=== PATIENT | female | born 1960 | race Caucasian/White ===

== ENCOUNTER 2020-01-27 23:57 | Emergency (ER) | payer OTHER, SELFPAY ==
[2020-01-28 00:03] VITALS: BP 143/73; PULSE 91; RESP 18; TEMP 36.6; O2SAT 98
--- NOTE | 2020-01-28 00:14 | ED.SKABFB ---
HPI - Skin/Abscess/Foreign Bdy General Chief complaint: Skin/Abscess/Foreign Body Stated complaint: spider bite Time Seen by Provider: 01/28/20 00:07 Source: patient Mode of arrival: ambulatory Limitations: no limitations History of Present Illness HPI narrative: This patient is a 60 year old female who presents for evaluation of a spider bite. She reports she was bitten by a spider yesterday morning at 10 am. She states she was bitten by a brown recluse. She developed a rash around the bite site. She reports she developed a rash to her chest and back tonight so she came to the ER. She denies fever, sob, nausea or vomiting. She does have mild itching. Related Data Allergies Allergy/AdvReac Type Severity Reaction Status Date / Time No Known Allergies Allergy Verified 01/28/20 01:33 Review of Systems Review of Systems: All systems reviewed & are unremarkable except as noted in HPI and below Constitutional: Constitutional: Denies chills and Denies fever(s) Cardiovascular: Cardiovascular: Denies chest pain Respiratory: Respiratory: Denies dyspnea Gastrointestinal: Gastrointestinal: Denies abdominal pain, Denies diarrhea, Denies nausea and Denies vomiting Integumentary/Breasts: Skin/Breast: Reports pruritus and Reports rash PMF Past Medical History Medical History (Updated 01/28/20 @ 00:24 by Enma Roa MD) DVT (deep venous thrombosis) Social History Social History Gender identity (if verbalized by the patient): Female Exam Const: General: no acute distress and alert Orientation/consciousness: patient oriented x3 HENMT: Head: normocephalic and atraumatic Face and sinus: face symmetric Eyes: EOM: EOMs intact bilaterally Resp: Effort & Inspection: normal respiratory effort Skin: Rashes: rashes noted (left inner upper arm with large area urticar with bruised middle. ; ) Other: diffuse chest and back with blanchable erythematous papules. Neuro: General: patient oriented x3 and moves all extremities Course Reevaluation(s) Reevaluation #1: PAtient states she is up to date on her tetanus. I discussed rash will be treated with steroids. No need for antibiotics at this time. Date: 01/28/20 Time: 00:22 Vital Signs Vital signs: Vital Signs Temperature 97.8 F 01/28/20 00:03 Pulse Rate 91 01/28/20 00:03 Respiratory Rate 18 01/28/20 00:03 Blood Pressure 143/73 H 01/28/20 00:03 Pulse Oximetry 98 01/28/20 00:03 Temperature 97.8 F 01/28/20 00:03 Pulse Rate 91 01/28/20 00:03 Respiratory Rate 18 01/28/20 00:03 Blood Pressure 143/73 H 01/28/20 00:03 Pulse Oximetry 98 01/28/20 00:03 Discharge Plan Discharge Clinical Impression: Allergic reaction to spider bite Patient Disposition: Home, Self-Care Condition: Stable Instructions: Antibiotic Form, Insect Bite or Sting (ED), Brown Recluse Spider Bite (ED) Additional Instructions: Take claritin or benadryl for your itching. Watch for signs of infection such as drainage , redness, fever, vomiting or weakness. Prescriptions: New prednisone 50 mg tablet 50 mg PO DAILY Qty: 5 RF: 0 Follow-up/Referrals: PHYSICIAN NOT ON STAFF,NONSTAFF [Non-Staff] - Discharge Date/Time: 01/28/20 01:35
[2020-01-28] MEDS: FAMOTIDINE 20 MG TABLET PO (00:39)
[2020-01-28] MEDS: diphenhydrAMINE HCl CAP 25 MG CAPSULE 50 MG PO (00:39)
[2020-01-28] MEDS: methylPREDNISolone SOD SUCC 125 MG VIAL IM (00:39)
== END 2020-01-28 01:35 | disposition home or self-care (01) ==
PROVIDERS: Emergency Provider General Practice
DX: T63.331A Toxic effect of venom of brown recluse spider, accidental (unintentional), initial encounter (principal); Z86.718 Personal history of other venous thrombosis and embolism
CPT/HCPCS: 96372; 99283; A9270; J2930

== ENCOUNTER 2020-02-04 16:57 | Emergency (ER) | payer OTHER, SELFPAY ==
--- NOTE | ~2020-02-04 | US_ITS ---
US venous doppler [facility] DATE: 02/04/2020 19:16 INDICATION: Left leg swelling TECHNIQUE: Real-time and color flow imaging and Doppler analysis of the left lower extremity COMPARISON: None FINDINGS: The left greater saphenous vein is patent. There is spontaneous and phasic flow and normal augmentation and color flow signal and normal compression of the veins of the left leg. IMPRESSION: No evidence of deep venous thrombosis of left leg Reviewed, dictated and finalized at [facility]. Reviewed, dictated and finalized at location [facility].
--- NOTE | ~2020-02-04 | US_ITS ---
US venous doppler [facility] DATE: 02/04/2020 19:22 INDICATION: Spider bite of the medial upper left arm. Pain. TECHNIQUE: Real-time and color flow imaging and Doppler analysis of the veins of the left upper extre mity COMPARISON: None FINDINGS: There is normal flow in the left internal jugular, subclavian, axillary, brachial, basilic, cephalic, radial and ulnar veins. IMPRESSION: No evidence of deep venous thrombosis of left upper extremity Reviewed, dictated and finalized at [facility]. Reviewed, dictated and finalized at location [facility].
--- NOTE | ~2020-02-04 | XR_ITS ---
XR chest 2V DATE: 02/04/2020 17:31 INDICATION: Cough, shortness of breath, left lower extremity edema. Spider bite of left arm. TECHNIQUE: PA and lateral views COMPARISON: None FINDINGS: Normal heart size. No hilar or mediastinal enlargement. No pulmonary infiltrate or consolid ation, pleural effusion or pulmonary vascular congestion or pneumothorax. Diffuse osteopenia. IMPRESSION: No active cardiopulmonary disease Reviewed, dictated and finalized at location [facility].
--- NOTE | ~2020-02-04 | CT_ITS ---
EXAMINATION: CTA chest PE protocol DATE: 02/04/2020 18:29 INDICATION: Cough, shortness of breath, left lower extremity edema. TECHNIQUE: Computed tomography angiography (CTA) of the chest was performed with 100 mL Omnipaque-350 intravenous contrast timed to evaluate the pulmonary arteries. Coronal maximum intensity projection 3D-reconstructions were created by the technologist. Automated exposure control and iterative reconst ruction technique were employed. Exam dose: 567.64 mGy-cm total exam DLP. COMPARISON: 02/04/2020 PA and lateral chest FINDINGS: There is diagnostic contrast enhancement of the pulmonary arteries. There is no evidence of pulmonary embolism. No aortic dissection or aneurysm. Normal heart size. No pericardial or pleural effusion. Calcified pulmonary granulomas in the superior segment of the right lower lobe, calcified right hilar and mediastinal nodes. There is mild discoid atelectasis in the lower lobes. No pulmonary infiltrate or consolidation or pul monary mass lesion is detected. Included skeletal structures are unremarkable. IMPRESSION: No evidence of pulmonary embolism Reviewed, dictated and finalized at [facility]. Reviewed, dictated and finalized at [facility].
--- NOTE | 2020-02-04 17:08 | ED.SOB ---
HPI - SOB/Dyspnea General Chief Complaint: Shortness of Breath/Dyspnea <Lori Larios MD - Last Filed: 02/04/20 19:41> Stated Complaint: SOB, EDEMA IN LEFT LEG <Lori Larios MD - Last Filed: 02/04/20 19:41> Time Seen by Provider: 02/04/20 17:08 <Lori Larios MD - Last Filed: 02/04/20 19:41> Source: patient <Lori Larios MD - Last Filed: 02/04/20 19:41> Mode of arrival: ambulatory <Lori Larios MD - Last Filed: 02/04/20 19:41> Limitations: no limitations <Lori Larios MD - Last Filed: 02/04/20 19:41> History of Present Illness HPI Narrative: Patient is a 60-year-old female with a history of factor V Leiden, chronic anticoagulation on Xarelto, who presents for evaluation of chest pain, shortness of breath, left lower extremity swelling as well as left arm infection. Patient reports that she was bitten by a brown recluse spider approximately a week ago, seen in this ER diagnosed with an allergic reaction, then seen by her primary care provider and put on doxycycline. Patient reports severe arm pain in the right arm that is dull and aching in nature with increased bruising around the area of the envenomation site. Patient denies any purulent discharge. No severe edema in the left upper arm. Patient also reports pitting edema of the left foot and left leg. 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 Patient is also reporting some chest pain and shortness of breath over the course of the day. No shortness of breath at rest. She initially describes the chest pain is burning in nature and is worried about acid reflux, but has been states she has more reporting chest pain over the center of her chest. This has been present since this morning. No ripping or tearing sensation to the pain. No flank pain. Patient has been compliant with her anticoagulation. She denies any fever, productive cough or recent sick contacts. Pt with recent four hour car drive. No sick contacts or known covid contacts. <Lori Larios MD - Last Filed: 02/04/20 19:41> Related Data Home Medications: Home Medications Medication Instructions Recorded Confirmed rivaroxaban [Xarelto] mg 02/04/20 02/04/20 <Lori Larios MD - Last Filed: 02/04/20 19:41> Allergies/Adverse Reactions: Allergies Allergy/AdvReac Type Severity Reaction Status Date / Time No Known Allergies Allergy Verified 02/04/20 16:58 <Lori Larios MD - Last Filed: 02/04/20 19:41> Review of Systems Review of Systems: Narrative: CONSTITUTIONAL: Denies fever, chills, or sweats. ENT: Denies rhinorrhea, congestion, sore throat, or otalgia. CARDIOVASCULAR: Reports chest pain and left lower extremity edema RESPIRATORY: Denies cough, reports shortness of breath GASTROINTESTINAL: Denies abdominal pain, nausea, vomiting, or diarrhea. GENITOURINARY: Denies dysuria or hematuria. SKIN: Denies rash or itching. MUSCULOSKELETAL: Denies back pain, joint pain, or myalgia. NEUROLOGIC: Denies headache, numbness, or weakness. <Lori Larios MD - Last Filed: 02/04/20 19:41> [facility] Past Medical History Medical History: Medical History DVT (deep venous thrombosis) Factor V Leiden <Lori Larios MD - Last Filed: 02/04/20 19:41> Social History Social History: Social History (Updated 02/04/20 @ 17:34 by Lori Larios MD) Smoking status: Never smoker Alcohol intake: never Substance use: never Living arrangements: with family Gender identity (if verbalized by the patient): Female <Lori Larios MD - Last Filed: 02/04/20 19:41> Exam Narrative: Exam Narrative: GENERAL: Awake, alert, conversant HEAD: Normocephalic, atraumatic. EYES: PERRLA and EOMI. ENT: Nares clear, no rhinorrhea or epistaxis. Mucous membranes moist. NECK: Meza
[2020-02-04 17:11] VITALS: BP 136/94; PULSE 83; RESP 17; TEMP 36.7; O2SAT 98
--- NOTE | 2020-02-04 17:16 | ECG_ITS ---
Measurements Intervals [place] Rate: 68 P: 41 NH: 159 QRS: -12 QRSD: 77 T: 10 QT: 382 QTc: 409 Interpretive Statements SINUS RHYTHM VOLTAGE CRITERIA FOR LVH MINIMAL Q WAVES- HIGH LATERAL LEADS BORDERLINE T WAVE ABNORMALITY- INFERIOR LEADS BASELINE ARTIFACT- V6 BORDERLINE ECG Electronically Signed On 02-04-2020 18:09:10 CDT by Sandeep Blackman D.O.
[2020-02-04 17:45] VITALS: O2SAT 96
[2020-02-04 17:51] LABS: Basophils Percent Auto 0.5 % (0.2-1.2); Eosinophils Absolute Auto 0.2 K/mm3 (0-0.3); Eosinophils Percent Auto 2.5 % (0-4.4); Hematocrit 39.5 % (37.0-47.0); Hemoglobin 13.2 g/dL (12.0-15.0); Immature Granulocyte Absolute 0.02 K/mm3 (0.00-0.031); Immature Granulocyte Percent A 0.2 % (0-0.5); Lymphocytes Absolute Auto 2.86 K/mm3 (0.9-3.2); Lymphocytes Percent Auto 34.6 % (18.3-44.2); Mean Corpuscular HGB Conc 33.4 g/dl (32-36); Mean Corpuscular Hemoglobin 32.1 pg (26-34); Mean Corpuscular Volume 96.1 fl (80-100); Monocytes Percent Auto 11.5 % (2.6-8.5); Neutrophils Absolute Auto 4.2 K/mm3 (1.3-6.7); Neutrophils Percent Auto 50.7 % (45.5-73.1); Platelet Count Result 242 k/mm3 (150-375); Red Blood Count 4.11 M/mm3 (4.2-5.4); Red Cell Distribution Width 12.7 % (11.5-14.5); White Blood Count 8.3 K/mm3 (4.5-10.0)
[2020-02-04 17:58] LABS: INR 1.1; Prothrombin Time 14.3 Seconds (11.1-14.7)
[2020-02-04 17:59] LABS: Partial Thromboplastin Time 29.6 SECONDS (22.3-36.8)
[2020-02-04 18:04] LABS: Anion Gap 3 mmol/L (8-16); Blood Urea Nitrogen 22 mg/dL (7-17); CRP 2.7 mg/dL (<1.0); Calcium 9.3 mg/dL (8.4-10.2); Carbon Dioxide 30 mmol/L (22-30); Chloride 101 mmol/L (98-107); Estimated CRCL calculation 54 ml/min; Estimated Glomerular Filt Rate 57; Glucose 98 mg/dL (65-105); Potassium 4.2 mmol/L (3.4-5.0); Sodium 134 mmol/L (137-145)
[2020-02-04 18:14] LABS: NT Pro B Type Natriuretic Pept 264 PG/ML (5-100); Troponin I < 0.012 ng/mL (0.000-0.034)
[2020-02-04 18:15] LABS: Erythrocyte Sedimentation Rate 18 mm/hr (0-20)
[2020-02-04 20:19] VITALS: BP 137/80; PULSE 77; RESP 18; TEMP 36.6; O2SAT 99
== END 2020-02-04 20:20 | disposition home or self-care (01) ==
PROVIDERS: Emergency Medicine; Emergency Provider Emergency Medicine; PCP Family Medicine
DX: R60.0 Localized edema (principal); R07.89 Other chest pain; T63.331D Toxic effect of venom of brown recluse spider, accidental (unintentional), subsequent encounter; D68.51 Activated protein C resistance; Z79.01 Long term (current) use of anticoagulants; Z86.718 Personal history of other venous thrombosis and embolism; R94.31 Abnormal electrocardiogram [ECG] [EKG]
CPT/HCPCS: 36415; 71046; 71275; 80048; 83880; 84484; 85025; 85610; 85652; 85730; 86140; 93005; 93971; 99284; Q9967

== ENCOUNTER → 2022-05-07 10:12 | Outpatient (CLI) | payer OTHER, SELFPAY ==
--- NOTE | ~2022-05-07 | MM_ITS ---
EXAMINATION: MM screening [facility] BI w varsha HISTORY: Screening mammogram TECHNIQUE: Craniocaudal and mediolateral oblique 3-D tomosynthesis images were obtained and synthetic 2-D images were generated. CAD analysis was submitted and interpreted. COMPARISON: No prior mammogram is available for comparison at this institution. BREAST PARENCHYMAL COMPOSITION: The breasts are heterogeneously dense, which may obscure small masses . FINDINGS: RIGHT BREAST: There is focal asymmetry in the middle third of the lower inner breast. LEFT BREAST: No suspicious mass, calcification, or architectural distortion are identified to suggest malignancy. IMPRESSION: 1. Focal asymmetry of the right breast which may represent the patient's baseline however no comparis on is currently available. 2. Comparison with prior mammograms is necessary. BI-RADS Category 0: Incomplete: Needs comparison with prior mammograms. Reviewed, dictated and finalized at location [facility]. NMELT OPERATOR IMPRESSION: 1. Focal asymmetry of the right breast which may represent the patient's baseli ne however no comparison is currently available. 2. Comparison with prior mammograms is necessary. BI-RADS Category 0: Incomplete: Needs comparison with prior mammograms.
--- NOTE | ~2022-05-07 | DEXA_ITS ---
Bone Density Report Name: ERIN MYERS Age: 62 Sex: Female Ethnicity: White Date of : 1960 Indication: postmenopausal; screening for osteoporosis; Referring Provider: Mauricio, Moon Triplett Study: Bone densitometry was performed. Exam Date: May 07, 2022 Accession number: [id number] Bone Density: Region BMD T-score Z-score Classification AP Spine (L1-L4) 0.866 -1.6 -0.1 Osteopenia Femoral Neck (Left) 0.708 -1.3 0.1 Osteopenia Total Hip (Left) 0.819 -1.0 0.0 Normal Femoral Neck (Right) 0.777 -0.7 0.7 Normal Total Hip (Right) 0.829 -0.9 0.1 Normal Total Hip Mean 0.824 -1.0 0.1 Normal World Health Organization criteria for BMD impression classify patients as: Normal (T-score at or above -1.0), Osteopenia (T-score between -1.0 and -2.5), or Osteoporosis (T-score at or below -2.5). 10-year Fracture Risk(1): Major Osteoporotic Fracture 7.2% Hip Fracture 0.5% Reported Risk Factors: [place] (), Neck BMD=0.708, BMI=35.8 (1) FRAX(R) Version 3.08. Fracture probability calculated for an untreated patient. Fracture probability may be lower if the patient has received treatment. Clinical Information Provided by Patient: Patient maximum height was 68 Menopause Age: 53 No regular weight bearing exercise Drinks caffeinated beverages Onset of menses at age 15 Number of children 2 Impression: The patient has low bone mass, based on the Total Spine T-score. The patient has an estimated ten-year risk of hip fracture of 0.5% and an estimated ten-year risk of major fracture of 7.2%, based on the WHO FRAX algorithm. Discussion: BONE DENSITY IS LOW AT ONE OR MORE SKELETAL SITES. This patient's lowest T-score is low at one or more skeletal sites. It meets the World Health Organization's (WHO) criteria for ?low bone mass? (T-score between -1.0 and -2.5). The patient's 10-year risk of fracture as calculated by FRAX is less than the threshold where pharmacological therapy is recommended by the National Osteoporosis Foundation (NOF). However, all treatment decisions require clinical judgment and consideration of individual patient factors, including patient preferences, comorbidities, previous drug use, risk factors not captured in the FRAX model (e.g., frailty, falls, vitamin D deficiency, increased bone turnover, interval significant decline in bone density) and possible under or overestimation of fracture risk by FRAX. The patient should follow a healthful lifestyle (good nutrition with adequate calcium and vitamin D, and appropriate weight-bearing exercise). Follow-Up: Consider repeating this study in 2 to 3 years to reassess this patient's status, or sooner if there is some new clinical indication. Reported by: [facility] on 05/07/2022 10:50:00 AM.
== END ==
PROVIDERS: PCP Family Medicine; Visit Provider Nurse Practitioner Obstetrics & Gynecology
DX: Z12.31 Encounter for screening mammogram for malignant neoplasm of breast (principal); Z78.0 Asymptomatic menopausal state; R92.8 Other abnormal and inconclusive findings on diagnostic imaging of breast; M85.88 Other specified disorders of bone density and structure, other site; M85.852 Other specified disorders of bone density and structure, left thigh
CPT/HCPCS: 77063; 77067; 77080

== ENCOUNTER → 2022-07-09 10:26 | Outpatient (CLI) | payer OTHER, SELFPAY ==
--- NOTE | ~2022-07-09 | US_ITS ---
Abdominal Sonogram: Real-time sonographic imaging of the abdomen was performed. Clinical History: Abdominal pain Findings: The liver appears normal with no evidence of solid mass lesion or bile duct dilatation. Sm all hepatic cyst noted. Main portal vein demonstrates normal direction of flow. The spleen is normal in size without evidence of focal lesion. The gallbladder is well distended, with no definite stone. Probable 6 mm gallbladder wall polyp. The common bile duct measures 5 mm. The visualized pancreas, aorta, and IVC are unremarkable. The right kidney measures 8.9 cm in length and the left kidney david ures 8.6 cm. There is no hydronephrosis or renal calculus. Impression: 6 mm gallbladder wall polyp. Probable small hepatic cyst. Reviewed, dictated and finalized at [facility]. ER FITTER Impression: 6 mm gallbladder wall polyp. Probable small hepatic cyst.
--- NOTE | ~2022-07-09 | US_ITS ---
Pelvic ultrasound. Clinical History: Pelvic pain Technique: Realtime transabdominal scanning of the pelvis was performed. Color flow Doppler and Doppl er spectral analysis were performed. Findings: The uterus is anteverted. The endometrial stripe has a thickness of 3 mm. No focal mass is identified. Neither ovary seen. No adnexal mass seen. There is no evidence of free fluid in the cul de sac. Impression: No significant abnormality seen. Neither ovary visualized. Somewhat suboptimal exam related to transa bdominal technique and patient body habitus. Reviewed, dictated and finalized at [facility]. ROLOGY SOCIAL WORKER Impression: No significant abnormality seen. Neither ovary visualized. Somewhat suboptimal exam related to transabdominal technique and patient body habitus.
== END ==
PROVIDERS: PCP Family Medicine; Visit Provider Family Medicine
DX: R10.30 Lower abdominal pain, unspecified (principal); K82.4 Cholesterolosis of gallbladder
CPT/HCPCS: 76700; 76856

== ENCOUNTER 2023-11-22 07:07 | Outpatient (CLI) | payer OTHER, SELFPAY ==
--- NOTE | ~2023-11-22 | MM_ITS ---
EXAMINATION: MM screening [facility] BI w varsha HISTORY: Screening mammogram TECHNIQUE: Craniocaudal and mediolateral oblique 3-D tomosynthesis images were obtained and synthetic 2-D images were generated. CAD analysis was submitted and interpreted. COMPARISON: 05/07/2022, 01/04/2018 BREAST PARENCHYMAL COMPOSITION:Dense: The breasts are heterogeneously dense, which may obscure small masses. FINDINGS: Extensive scattered bilateral benign calcifications are present. No suspicious mass, calcif ication, or architectural distortion are identified in either breast to suggest malignancy. There has been no suspicious interval change. IMPRESSION: No mammographic evidence of malignancy. Recommend routine screening mammography in one year. BI-RADS Category 2: Benign finding(s). Reviewed, dictated and finalized at location .
== END 2023-11-22 07:08 ==
PROVIDERS: PCP Physician Assistant; Visit Provider Physician Assistant
DX: Z12.31 Encounter for screening mammogram for malignant neoplasm of breast (principal)
CPT/HCPCS: 77063; 77067

== ENCOUNTER 2024-01-03 17:16 | Outpatient (CLI) | payer OTHER, SELFPAY ==
--- NOTE | ~2024-01-03 | US_ITS ---
EXAMINATION: US venous doppler [facility] DATE: 01/03/2024 17:35 INDICATION: swelling of lower leg . TECHNIQUE: Grayscale images without and with compression and Doppler images of the right lower extrem ity veins were obtained. COMPARISON: None FINDINGS: The right common femoral vein, profunda (deep) femoral vein, femoral vein, popliteal vein, peroneal v ein, posterior tibial veins, gastrocnemius vein, and greater saphenous vein are patent. IMPRESSION: Patent right lower extremity veins. No evidence of deep venous thrombosis. Reviewed, dictated and finalized at location [facility].
== END 2024-01-03 17:17 | disposition home or self-care (01) ==
LOC: ANHIMG 17:16
PROVIDERS: PCP Physician Assistant
DX: M79.89 Other specified soft tissue disorders (principal)
CPT/HCPCS: 93971